=== PATIENT | male | born 1990 | race Caucasian/White ===

== ENCOUNTER → 2020-03-10 | Outpatient (CLI) | payer BC | END | disposition home or self-care (01) | LOC: LABWHC1 13:14 | PROVIDERS: ATTEND Emergency Medicine | DX: Z20.828 Contact with and (suspected) exposure to other viral communicable diseases (principal) | CPT/HCPCS: U0003; C9803 ==

== ENCOUNTER 2023-06-17 17:26 | Emergency (ER) | payer BC ==
--- NOTE | 2023-06-17 17:44 | ED ---
Upper Extremity HPI - General Source: patient, family, RN notes reviewed <France Vega - Last Filed: 06/24/23 18:11> - General Source: patient, family, RN notes reviewed, old records reviewed Mode of arrival: ambulatory Limitations: no limitations - History of Present Illness MD Complaint: Injury to:: left, shoulder -: minutes(s) Other Extremity Injury: Shoulder: Left Handedness: left Place: home Improves With: none Worsens With: none Context: fall, direct blow Associated Symptoms: denies other symptoms Treatments Prior to Arrival: cold therapy <Robert Osborn - Last Filed: 06/27/23 15:56> - General Stated Complaint: left shoulder injury/hand Time Seen by Provider: 06/17/23 17:43 - History of Present Illness Initial Comments: Patient is a 33-year-old male presented ER with chief complaint of left shoulder pain. Patient states he slipped on snow and fell. He states he heard a pop. Patient states he cannot feel his entire left arm. Patient can no longer move his arm. Denies any other injuries (France Vega) This is a 33-year-old male to the emergency department for evaluation of shoulder pain left shoulder pain after slip and fall patient did feel a significant pop is unable to move his left arm no other injury noted (Robert Osborn) - Related Data Allergies Allergy/AdvReac Type Severity Reaction Status Date / Time No Known Allergies Allergy Verified 06/17/23 17:58 Review of Systems ROS Other: All systems not noted in ROS Statement are negative. <France Vega - Last Filed: 06/24/23 18:11> ROS Other: All systems not noted in ROS Statement are negative. <Robert Osborn - Last Filed: 06/27/23 15:56> ROS Statement: Those systems with pertinent positive or pertinent negative responses have been documented in the HPI. General Exam <France Vega - Last Filed: 06/24/23 18:11> General appearance: alert, in no apparent distress Head exam: Present: atraumatic, normocephalic, normal inspection Eye exam: Present: normal appearance, PERRL, EOMI. Absent: scleral icterus, conjunctival injection, periorbital swelling ENT exam: Present: normal exam, mucous membranes moist Neck exam: Present: normal inspection. Absent: tenderness, meningismus, lymphadenopathy Respiratory exam: Present: normal lung sounds bilaterally. Absent: respiratory distress, wheezes, rales, rhonchi, stridor Cardiovascular Exam: Present: regular rate, normal rhythm, normal heart sounds. Absent: systolic murmur, diastolic murmur, rubs, gallop, clicks GI/Abdominal exam: Present: soft, normal bowel sounds. Absent: distended, tenderness, guarding, rebound, rigid Extremities exam: Present: normal inspection, full ROM, normal capillary refill. Absent: tenderness, pedal edema, joint swelling, calf tenderness Back exam: Present: normal inspection Neurological exam: Present: alert, oriented X3, CN II-XII intact Psychiatric exam: Present: normal affect, normal mood Skin exam: Present: warm, dry, intact, normal color. Absent: rash <Robert Osborn - Last Filed: 06/27/23 15:56> - General Exam Comments Initial Comments: Visual Physical Exam Vital signs reviewed General: Uncomfortable nontoxic, no acute distress. Head: Normocephalic, atraumatic Eyes: PERRLA, EOMI ENT: Airway patent Chest: Nonlabored breathing Skin: No visual rash, normal skin tone Neuro: Alert and oriented 3 Musculoskeletal: Left limited ROM. 1-2+ left radial pulse. patient is bracing arm on knee (France Vega) Course <Robert Osborn - Last Filed: 06/27/23 15:56> Vital Signs 06/17/23 06/17/23 06/17/23 17:54 20:46 20:48 Temperature 98.0 F Pulse Rate 77 88 80 Respiratory 20 16 18 Rate Blood Pressure 123/79 129/86 129/82 O2 Sat by Pulse 99 99 97 Oximetry 06/17/23 06/17/23 06/17/23 20:51 20:55 21:03 Temperature Pulse Rate 74 81 80 Respiratory 16 16 18 Rate Blood Pressure 119/78 115/80 123/76 O2 Sat by Pulse 96 98 98 Oximetry 06/17/23 06/17/23 21:15 21:53 Temperature Pulse Rate 84 96 Respiratory 18 18 Rate Blood Pressure 123/85 118/73 O2 Sat by Pulse 98 97 Oximetry - Reevaluation(s) Reevaluation #1: Medical records are reviewed (Robert Osborn) Reevaluation #2: Patient symptoms are improved (Robert Osborn) Reevaluation #3: Patient informed results and questions answered (Robert Osborn) Reevaluation #4: Was pt. sent in by a medical professional or institution (RAJIV Gonzáles, COMPUTATIONAL MATHEMATICIAN, urgent care, hospital, or senior living...) When possible be specific @ -no Did you speak to anyone other than the patient for history (EMS, parent, family, police, friend...)? What history was obtained from this source @ -no Did you review nursing and triage notes (agree or disagree)? Why? @ -agree Are old charts reviewed (outside hosp., previous admission, EMS record, old EKG, old radiological studies, urgent care reports/EKG's, senior living records)? Report findings @ -yes Differential Diagnosis (chest pain, altered mental status, abdominal pain women, abdominal pain men, vaginal bleeding, weakness, fever, dyspnea, syncope, headache, dizziness, GI bleed, back pain, seizure, CVA, palpatations, mental health, musculoskeletal)? @ -prior EKG interpreted by me (3pts min.). @ -no X-rays interpreted by me (1pt min.). @ -yes positive for shoulder dislocation CT interpreted by me (1pt min.). @ -no U/S interpreted by me (1pt. min.). @ -no What testing was considered but not performed or refused? (CT, X-rays, U/S, labs)? Why? @ -none What meds were considered but not given or refused? Why? @ -none Did you discuss the management of the patient with other professionals (professionals i.e. RAJIV Gonzáles, COMPUTATIONAL MATHEMATICIAN, lab, RT, psych nurse, social media developer, fine chemicals operator, teacher, account officer, supportive employment case manager)? Give summary @ -no Was smoking cessation discussed for >3mins.? @ -no Were there social determinants of health that impacted care today? How? (Homelessness, low income, unemployed, alcoholism, drug addiction, transportation, low edu. Level, literacy, decrease access to med. care, fpc, rehab)? @ -none Was there de-escalation of care discussed even if they declined (Discuss DNR or withdrawal of care, Hospice)? DNR status @ -no What co-morbidities impacted this encounter? (DM, HTN, Smoking, COPD, CAD, Cancer, CVA, ARF, Chemo, Hep., AIDS, mental health diagnosis, sleep apnea, morbid obesity)? @ -none Was patient admitted / discharged? Hospital course, mention meds given and route, prescriptions, significant lab abnormalities, going to OR and other pertinent info. @ - 33 male to the emergency department for evaluation of fall with shoulder dislocation. Shoulder is reduced here in the ER without significant difficulty under procedural sedation patient can be discharged home Discharge Was critical care preformed (if so, how long)? @ -no Undiagnosed new problem with uncertain prognosis? @ -no Drug Therapy requiring intensive monitoring for toxicity (Heparin, Nitro, Insulin, Cardizem)? @ -no Were any procedures done? @ -Shoulder dislocation procedural sedation Diagnosis/symptom? @ -Shoulder dislocation reduction, left Acute, or Chronic, or Acute on Chronic? @ -Acute Uncomplicated (without systemic symptoms) or Complicated (systemic symptoms)? @ -Complicated Side effects of treatment? @ -no Exacerbation, Progression, or Severe Exacerbation? @ -exacerbation Poses a threat to life or bodily function? How? (Chest pain, USA, SC, pneumonia, PE, COPD, DKA, ARF, appy, cholecystitis, CVA, Diverticulitis, Homicidal, Suicidal, threat to staff... and all critical care pts) @ -no (Robert Osborn) Procedures - Orthopedic Joint Reduction Joint #1 Side: left Joint Reduction Location: shoulder Analgesia: procedural sedation Shoulder Technique Used (if applicable): traction/counter-traction Post Reduction X-Ray Obtained: Yes Post Reduction X-Ray Results: reduced Splint Applied: Yes Patient Tolerated Procedure: well <France Vega - Last Filed: 06/24/23 18:11> - Procedural Sedation *Procedural Sedation Start Time: 20:00 *Procedural Sedation Stop Time: 20:45 *Risks,benefits, and alternative therapies discussed?: Yes *Patient indicates understanding of risk/benefit discussion?: Yes *Indications: fracture/dislocation reduction *Previous Adverse Reaction to Anesthesia/Sedation?: Yes *ASA Class: III *Mallampati Airway Score: 3 Preparation: oxygen tank filler applied, pulse oximeter, capnometry used IV Propofol Dose (mgs): 200 Complications: none Interventions: oxygen applied, airway repositioned, use of reversal agent Patient Tolerated Procedure: well <Robert Osborn - Last Filed: 06/27/23 15:56> Medical Decision Making <France Vega - Last Filed: 06/24/23 18:11> - Radiology Data Radiology results: report reviewed (X-ray left shoulder positive dislocation, x- ray and negative for), image reviewed <Robert Osborn - Last Filed: 06/27/23 15:56> - Medical Decision Making I performed the quick note portion of the exam. Electronically signed by France Vega PA-C (France Vega) 33 male to the emergency department for evaluation of fall with shoulder dislocation. Shoulder is reduced here in the ER without significant difficulty under procedural sedation patient can be discharged home (Robert Osborn) Disposition <France Vega - Last Filed: 06/24/23 18:11> Is patient prescribed a controlled substance at d/c from ED?: No <Robert Osborn - Last Filed: 06/27/23 15:56> Clinical Impression: Dislocation of left shoulder joint, Fall, Strain of shoulder Disposition: ADMITTED IP TO THIS HOSP Condition: Fair Instructions (If sedation given, give patient instructions): Shoulder Dislocation (ED) Referrals: David Garg MD [Primary Care Provider] - 1-2 days Johnathan Barajas DO [Doctor of Osteopathic Medicine] - 1-2 days
[2023-06-17 18:06] VITALS: TEMP 98
--- NOTE | 2023-06-17 19:14 | XR ---
EXAMINATION TYPE: XR elbow complete LT DATE OF EXAM: 06/17/2023 COMPARISON: None HISTORY: Injury pain TECHNIQUE: 2 view left elbow FINDINGS: Anterior fat pad is normal. No elevation of posterior fat pad is evident. Radius aligns nor pio with the humerus. Follow up exams can be performed 7-10 days from acute trauma for continued pain IMPRESSION: 1. No acute osseous abnormality left elbow
--- NOTE | 2023-06-17 19:16 | XR ---
EXAMINATION TYPE: XR shoulder complete LT DATE OF EXAM: 06/17/2023 COMPARISON: NONE HISTORY: Pain TECHNIQUE: Shoulder examined in 2 projections. FINDINGS: There is dislocation of the humeral head from the glenoid. Avulsion of the greater trochanter is susp ected. The acromio-clavicular junction is normal. A follow up study can be performed 7-10 days from acute trauma for continued pain. MRI can be perfor med if soft tissue evaluation would be of benefit. IMPRESSION: 1. Dislocation of the humeral head from the glenoid. 2. An avulsion of the greater trochanter is suspected.
--- NOTE | 2023-06-17 19:17 | XR ---
EXAMINATION TYPE: XR hand complete LT DATE OF EXAM: 06/17/2023 COMPARISON: None HISTORY: Fall, pain TECHNIQUE: 3 view left hand FINDINGS: No acute fracture or dislocation is evident. Joint spaces are preserved. Soft tissues are n ormal. Follow up exams can be performed 7-10 days from acute trauma for continued pain. IMPRESSION: 1. No acute osseous abnormality left hand
[2023-06-17] MEDS ORDERED: PROPOFOL 10 MG/ML 20 ML VIAL IV STA (20:18)
[2023-06-17] MEDS ORDERED: KETOROLAC 15 MG/ML 1 ML VIAL IVP STA (20:18)
[2023-06-17] MEDS ORDERED: SODIUM CHLORIDE 0.9% 1,000 ML IV STA (20:18)
[2023-06-17] MEDS ORDERED: HYDROmorphone 1 MG/ML 1 ML SYRINGE IVP STA (20:18)
[2023-06-17] MEDS ORDERED: PROPOFOL 10 MG/ML 20 ML VIAL IV ONE (21:09)
--- NOTE | 2023-06-17 21:12 | XR ---
EXAMINATION TYPE: XR shoulder limited LT DATE OF EXAM: 06/17/2023 COMPARISON: NONE HISTORY: Pain TECHNIQUE: Shoulder examined in 3 projections. FINDINGS: The humeral head articulates with the glenoid. The acromio-clavicular junction is normal. Tiny chip fracture at the level of the greater tuberosity appears to be present. No additional fractu res are identified. A follow up study can be performed 7-10 days from acute trauma for continued pain. MRI can be perfor med if soft tissue evaluation would be of benefit. IMPRESSION: 1. Reduction of previous dislocation left humeral head. 2. Tiny chip fracture at the greater tuberosity present.
[2023-06-17 21:45] VITALS: RESP 18
[2023-06-17 22:10] VITALS: BP 118/73; PULSE 96
== END 2023-06-17 22:12 | disposition other institution (70) ==
LOC: EC 17:26
DX: S43.005A Unspecified dislocation of left shoulder joint, initial encounter (principal); W00.0XXA Fall on same level due to ice and snow, initial encounter
CPT/HCPCS: 73030; 73020; 73080; 73130; 23650; 99152; 99153 ×2; 99285; 96374; 96375; 96361; J1170; J1885; J2704; 99284